=== PATIENT | female | born 2000 | race Caucasian/White ===

== ENCOUNTER 2019-08-13 00:39 | Emergency (ER) | payer OTHER, SELFPAY ==
[2019-08-13 00:41] VITALS: BP 144/79; PULSE 79; RESP 18; TEMP 36.4; O2SAT 97; BMI 35.5
--- NOTE | 2019-08-13 00:57 | RAD_ITS ---
STUDY: X-RAY - LEFT FOOT CLINICAL: Female, 19 years old. Injury to the fifth toe. TECHNIQUE: 3 view(s) of the foot. COMPARISON: None. FINDINGS: Acute mildly displaced fracture through the distal shaft of the fifth proximal phalanx. No other fracture. Normal bony mineralization. Alignment otherwise anatomic. No degenerative changes. RAD/Foot min 3 Views IMPRESSION: Acute mildly displaced fracture through the distal shaft of the fifth proximal phalanx. Electronically Signed: Steven Block, at 1:41 EDT Tel , Service support ,
--- NOTE | 2019-08-13 01:20 | ED.VISSUMM ---
- ER Visit Summary Date of Service: 08/13/19 Chief Complaint: Toe injury History of Present Illness: The patient is a 19 F who hit her left fifth toe on the couch tonight. Physical Examination: Afebrile vital signs stable There is swelling and tenderness over the left fifth toe patient reports swelling of the fourth toe as well neurovascular intact Test Results: X-rays demonstrated a fracture of the proximal phalanx of the left fifth toe. Emergency Department Course and Treatment: Patient received a [place] will receive a prescription for the same. Placed in a postop shoe will follow-up with orthopedics Impression: 1. Left fifth toe proximal phalanx fracture This note was generated with [employer] dictation software. It may contain incorrect words, spelling, and punctuation that were not noted in review of the chart prior to signing ED Disposition - Plan for ED Patient: Disposition: Home or Assisted Living Instructions: FRACTURE, Toe [Closed] Prescriptions: Hydrocodone Bitart/Apap 5-325 [[place] 5MG-325MG] 1 tab PO Q6H PRN PRN 3 Days #10 tab PRN Reason: Pain Prescription Printed Referrals: Keyur Loyola DPM [STAFF PHYSICIAN] - (call to arrange followup)
[2019-08-13] MEDS: HYDROcodone Bitartrate/Apap 5/325 Tablet PO (01:54)
[2019-08-13 02:13] VITALS: PULSE 76; RESP 16; O2SAT 98
== END 2019-08-13 02:13 | disposition home or self-care (01) ==
PROVIDERS: Emergency Provider Emergency Medicine
DX: S92.512A Displaced fracture of proximal phalanx of left lesser toe(s), initial encounter for closed fracture (principal); Z72.0 Tobacco use; W22.09XA Striking against other stationary object, initial encounter; Y93.01 Activity, walking, marching and hiking; Y92.008 Other place in unspecified non-institutional (private) residence as the place of occurrence of the external cause; Y99.8 Other external cause status
CPT/HCPCS: 73630; 99283